=== PATIENT | male | born 1955 | race Caucasian/White ===

== ENCOUNTER 2019-06-17 14:51 | Inpatient (IN) | payer OTHER ==
[~2019-06-17] VITALS: Ht 180.3 cm; Wt 61.6 kg
[~2019-06-17 14:51] MED LIST: ALBU108A14 IN; ALL100T PO; AMLO5TAB15 PO; BACL10TA PO; FENO134C16 PO; LEVO200I5 PO
[2019-06-17 15:45] LABS: Hematocrit 36.3 % (41.0-53.0); Hemoglobin 12.3 g/dL (13.5-17.5); Mean Corpuscular Volume 88.1 fL (80.0-100.0); Platelet Count (auto) 116 10^3/uL (140-450); Red Blood Cells 4.11 10^6/uL (4.5-5.90); Red Cell Distribution Width 17.5 % (11.8-14.3); White Blood Cell 12.3 10^3/uL (4.4-10.8)
[2019-06-17 15:48] LABS: Basophils % (manual) 0 (0.0-2.0); Blast Cells 0; Eosinophils % (manual) 0 (0-7); Promyelocytes % 0; Reactive Lymphocytes 0
[2019-06-17 16:10] LABS: Band Neutrophils % (manual) 3; Lymphocytes % (manual) 7 (10.0-50.0); Metamyelocytes % 2; Monocytes % (manual) 8 (0-12); Myelocytes % 1
[2019-06-17 16:11] LABS: Albumin 2.4 g/dL (3.4-5.0); BUN/Creatinine Ratio 21.2; Calcium 8.5 mg/dL (8.5-10.1); Potassium 3.4 mmol/L (3.5-5.1)
[2019-06-17 16:13] LABS: Bilirubin, Total 0.8 mg/dL (0.2-1.0)
[2019-06-17] MEDS ORDERED: IOHEXOL 300 MG/ML 100ML BOTTLE IJ ONE (17:04)
[2019-06-17] MEDS ORDERED: OMNIPAQUE ORAL SOLN 500ml 12mg/ml PO ONE (17:04)
[2019-06-17] MEDS ORDERED: SODIUM CHLORIDE 0.9% 1,000 ML IVB ONE (17:42)
[2019-06-17] MEDS ORDERED: PANTOPRAZOLE 40 MG/10 ML VIAL INJ IV ONE (17:45)
[2019-06-17 18:02] LABS: Magnesium 1.7 mg/dL (1.6-2.6)
[2019-06-17 18:09] LABS: INR 1.19 (0.9-1.15); Partial Thromboplastin Time 30.6 sec (23.64-32.05)
[2019-06-18] MEDS ORDERED: SOD CHL 0.45% 1,000 ML IV ONE (00:15)
[2019-06-18] MEDS: PANTOPRAZOLE 40 MG/10 ML VIAL INJ IV SCH ×3 (01:24→22:00)
[2019-06-18 02:15] VITALS: BP 112/55
[2019-06-18] MEDS: MORPHINE SULF INJ 2 MG/ML SYRINGE 1ML IV PRN ×3 (02:45→14:42)
[2019-06-18] MEDS: ONDANSETRON HCL 4 MG/2 ML VIAL IV PRN ×2 (02:45→09:10)
[2019-06-18 05:00] VITALS: BP 115/83
[2019-06-18] MEDS ORDERED: BACLOFEN 10 MG TAB PO SCH (06:00)
--- NOTE | 2019-06-18 07:30 | NUR ---
Opening Shift Note Assumed care of patient, awake and alert. No S/S of distress/SOB or pain. Instructed on POC and to call for assist PRN, will continue to monitor for changes Q1hr and PRN.
--- NOTE | 2019-06-18 07:51 | NUR ---
closing notes endorsed care to day shift nursekeri. No s/s distress/sob nor pain.
[2019-06-18 08:11] LABS: Calcium 8.3 mg/dL (8.5-10.1); Potassium 3.7 mmol/L (3.5-5.1)
[2019-06-18 08:15] LABS: Albumin 2.2 g/dL (3.4-5.0); BUN/Creatinine Ratio 18.8
[2019-06-18 08:16] LABS: Hematocrit 33.8 % (41.0-53.0); Hemoglobin 11.4 g/dL (13.5-17.5); Mean Corpuscular Hemoglobin 29.9 pg (28.0-32.0); Mean Corpuscular Hgb Conc. 33.7 g/dL (32.0-36.0); Mean Corpuscular Volume 88.6 fL (80.0-100.0); Platelet Count (auto) 103 10^3/uL (140-450); Red Blood Cells 3.82 10^6/uL (4.5-5.90); Red Cell Distribution Width 17.5 % (11.8-14.3); White Blood Cell 10.8 10^3/uL (4.4-10.8)
[2019-06-18 08:17] LABS: Bilirubin, Total 0.8 mg/dL (0.2-1.0); Total Protein 5.6 g/dL (6.4-8.2)
[2019-06-18 08:27] LABS: Basophils % (manual) 0 (0.0-2.0); Blast Cells 0; Promyelocytes % 0; Reactive Lymphocytes 0
[2019-06-18 08:44] VITALS: BP 110/82
[2019-06-18] MEDS: amLODIPine BESYLATE 5 MG TAB PO SCH (10:00)
[2019-06-18 10:34] LABS: Amylase 108 U/L (25-115); Lipase 421 U/L (73-393)
[2019-06-18] MEDS: ALLOPURINOL 100 MG TAB PO SCH (10:36)
[2019-06-18 11:41] LABS: Band Neutrophils % (manual) 2; Eosinophils % (manual) 3 (0-7); Lymphocytes % (manual) 6 (10.0-50.0); Metamyelocytes % 1; Monocytes % (manual) 6 (0-12); Myelocytes % 2
[2019-06-18] MEDS ORDERED: SODI650T PO (12:28)
[2019-06-18] MEDS ORDERED: HYDR-4798 PO (12:28)
[2019-06-18] MEDS ORDERED: DEXA0.5E4 PO (12:28)
[2019-06-18] MEDS ORDERED: BICA50TA13 PO (12:28)
--- NOTE | 2019-06-18 12:32 | NUR ---
NUTRITION ASSESSMENT NOTES Please refer to link notes of nutrition screen form filed under the intervention section of the plan of care for further details. Est. Energy Needs: 2070-4413 kcal (30-35 kcal/kg BW). Est. Protein Needs: 99-132 gms/day(1.5-2.0 gms/kg BW). Will continue to monitor pertinent labs and reassess nutrient need prn Addendum: 06/18/19 at [address] Amended: Links added.
[2019-06-18] MEDS: BICALUTAMIDE 50 MG TAB PO SCH (13:00)
[2019-06-18 13:25] VITALS: BP 108/60
[2019-06-18] MEDS: SODIUM BICARBONATE 650 MG TAB PO SCH ×2 (14:42→22:00)
[2019-06-18] MEDS ORDERED: GOLYTELY 4L KIT PO ONE (14:45)
[2019-06-18 17:00] VITALS: BP 114/59
--- NOTE | 2019-06-18 17:00 | NUR ---
PT PLACED ON BILATERAL SCD'S.
--- NOTE | 2019-06-18 17:30 | NUR ---
CANDELARIA AT BEDSIDE.
--- NOTE | 2019-06-18 18:30 | NUR ---
IV insertion ATTEMPT. UNSUCCESSFUL. PT WANTED TO TAKE A BREAK. WILL ENDORSE TO [facility].
--- NOTE | 2019-06-18 19:30 | NUR ---
CLOSING NOTES PT RESTING IN BED. NO DISTRESS NOTED. PAIN AT TOLERABLE LEVEL PER PT. CARE ENDORSED TO ERIK UNDERWOOD.
--- NOTE | 2019-06-18 19:50 | NUR ---
Opening Shift Note Assumed care of patient, awake, AAOx4. No S/S of distress/SOB or pain. On 2L oxygen via nasal cannula, patient on bedrest. SCD's applied to patient. Go-Litely at bedside for colonoscopy in the morning, patient educated to consume, patient verbalized understanding. Bed in lowest locked position, side rails up x2, call light within reach. Instructed on POC and to call for assist PRN, will continue to monitor for changes Q1hr and PRN.
[2019-06-18 22:00] VITALS: BP 97/80
[2019-06-18] MEDS: DexAMETHasone 4 MG TAB PO SCH (22:00)
--- NOTE | 2019-06-18 22:30 | NUR ---
PATIENT TOOK OFF SCD MACHINE FROM BOTH LEGS. PATIENT EDUCATED ON FUNCTION AND IMPORTANCE OF THE USE OF SCD MACHINE. PATIENT VERBALIZED UNDERSTANDING AND STILL REFUSED TO USE SCD MACHINE. WILL CONTINUE TO MONITOR.
[2019-06-19 05:00] VITALS: BP 117/63
[2019-06-19 05:28] LABS: Hematocrit 34.2 % (41.0-53.0); Hemoglobin 11.5 g/dL (13.5-17.5); Mean Corpuscular Hemoglobin 29.5 pg (28.0-32.0); Mean Corpuscular Hgb Conc. 33.6 g/dL (32.0-36.0); Mean Corpuscular Volume 87.8 fL (80.0-100.0); Platelet Count (auto) 121 10^3/uL (140-450); Red Blood Cells 3.89 10^6/uL (4.5-5.90); Red Cell Distribution Width 17.7 % (11.8-14.3); White Blood Cell 11.9 10^3/uL (4.4-10.8)
[2019-06-19 05:34] LABS: Basophils % (manual) 0 (0.0-2.0); Blast Cells 0; Eosinophils % (manual) 0 (0-7); Metamyelocytes % 0; Myelocytes % 0; Promyelocytes % 0; Reactive Lymphocytes 0
[2019-06-19 05:57] LABS: BUN/Creatinine Ratio 15.4; Calcium 8.8 mg/dL (8.5-10.1)
[2019-06-19 06:07] LABS: Band Neutrophils % (manual) 5; Lymphocytes % (manual) 5 (10.0-50.0); Monocytes % (manual) 5 (0-12)
[2019-06-19] MEDS: SODIUM BICARBONATE 650 MG TAB PO SCH ×3 (06:07→22:29)
[2019-06-19] MEDS ORDERED: SODIUM CHLORIDE LOCK 0 ML ONE (08:16)
[2019-06-19] MEDS ORDERED: MIDAZOLAM HCL 5 MG/ML-1ML VIAL ONE (08:16)
[2019-06-19] MEDS ORDERED: diphenhdrAMINE HCL 50 MG/1 ML VL ONE (08:17)
[2019-06-19] MEDS ORDERED: fentaNYL CITRATE 100 MCG/2 ML VL ONE (08:17)
[2019-06-19 09:00] VITALS: BP 112/66
--- NOTE | 2019-06-19 09:10 | NUR ---
Spoke to MD MD Tesfaye aware of patient's status. New orders received for MRI. Cont care
[2019-06-19] MEDS: PANTOPRAZOLE 40 MG/10 ML VIAL INJ IV SCH ×2 (10:00→22:29)
--- NOTE | 2019-06-19 10:30 | NUR ---
Paged GI regarding colonoscopy today patient has been non compliant with drinking Golytely over night, MD Powell paged to notify and clarify if patient is having procedure or not today. Awaiting call back. Patient refusing IV insertion at this time.
[2019-06-19] MEDS: DexAMETHasone 4 MG TAB PO SCH ×2 (11:33→22:29)
[2019-06-19] MEDS: ALLOPURINOL 100 MG TAB PO SCH (11:33)
[2019-06-19] MEDS: BICALUTAMIDE 50 MG TAB PO SCH (11:34)
[2019-06-19] MEDS: amLODIPine BESYLATE 5 MG TAB PO SCH (11:36)
--- NOTE | 2019-06-19 12:03 | NUR ---
Spoke to GI Doctor Sherry aware patient did not finish Golytely and had incontinent episode watery brown stool. MD states he will not scope patient today he states pt had recent colonoscopy and no more bleeding at this time, MD states bleeding possibly due to hemorrhoids. New orders received to cancel colonoscopy and advance patient to cardiac diet. Will feed patient and cont care
--- NOTE | 2019-06-19 12:11 | NUR ---
Spoke to Hospitalist MD eTsfaye aware Doctor Sherry will not scope patient today he states pt had recent colonoscopy and no more bleeding at this time, MD states bleeding possibly due to hemorrhoids. New orders received for thoracic and cervical MRI to be added to current lumbar MRI order without contrast. Spoke to Bob and notified regarding pending MRI. Patient notified. Bere in preop aware of procedure cancelled. Will cont care
[2019-06-19 12:30] VITALS: BP 116/70
--- NOTE | 2019-06-19 14:48 | NUR ---
Rectal tube in place per doctor Misellati order. 30 ml sterile water put in tube. Patient tolerated well with no distress or sob noted. No signs of bleeding noted. Patient transported to MRI at this time.
--- NOTE | 2019-06-19 16:25 | NUR ---
Patient back from MRI IV access obtained, via clean sterile technique by inserting 22 gauge catheter at Right hand after 1 attempt(s). IV secured properly. No trauma to site. Patient tolerated well. No distress or sob noted will cont to monitor
[2019-06-19 17:00] VITALS: BP 109/71
--- NOTE | 2019-06-19 18:45 | NUR ---
Spoke to MD MD Tesfaye aware of MRI results. MD notified of stool not been clear at this time and patient continues to have liquid brown stools in rectal tube. New orders for clear liquid diet received. Will endorse care to oncoming rn
--- NOTE | 2019-06-19 19:45 | NUR ---
Opening Shift Note Assumed care of patient, sleeping in bed comfortably. No S/S of distress/SOB or pain. Instructed on POC and to call for assist PRN, will continue to monitor for changes Q1hr and PRN.
[2019-06-19 22:00] VITALS: BP 118/65
--- NOTE | 2019-06-19 23:00 | NUR ---
PATIENT OFF SCD PATIENT REMOVED SCD'S FROM BOTH LEGS. EDUCATION REGARDING USE AND BENEFITS FOR DVT PROPHYLAXIS GIVEN TO PATIENT. PATIENT STILL WISHED TO REMOVE SCD'S FOR THE NIGHT. WILL REPLACE SCD'S IN MORNING AND REEDUCATE PATIENT. WILL CONTINUE TO MONITOR.
[2019-06-20 05:31] VITALS: BP 109/63
--- NOTE | 2019-06-20 06:01 | NUR ---
PATIENT CHANGED PATIENT CLEANED AFTER PASSING URINE, REPLACED LINEN. REAPPLIED SCD'S TO BOTH LEGS AFTER REEDUCATING PATIENT.
[2019-06-20] MEDS: SODIUM BICARBONATE 650 MG TAB PO SCH ×3 (06:15→22:29)
--- NOTE | 2019-06-20 07:30 | NUR ---
Opening Shift Note Assumed care of patient, awake and alert. No S/S of distress/SOB or pain. Instructed on POC and to call for assist PRN. SCD's on as ordered. IV site noted intact. Fall precs in place per protocol. Will continue to monitor for changes Q1hr and PRN.
--- NOTE | 2019-06-20 08:52 | NUR ---
Rectal tube d/c's after complete deflation of balloon. Patient tolerated well. No signs of trauma or bleeding noted. Patient tolerated well. Hospitalist at bedside, MD Tesfaye aware of patient's status. Awaiting new orders at this time states he will talk to patient's spouse. Cont care
[2019-06-20] MEDS ORDERED: LACT10SO3 PO (08:53)
[2019-06-20 09:00] VITALS: BP 112/64
[2019-06-20] MEDS: DexAMETHasone 4 MG TAB PO SCH ×2 (09:51→22:29)
[2019-06-20] MEDS: PANTOPRAZOLE 40 MG/10 ML VIAL INJ IV SCH ×2 (09:51→22:00)
[2019-06-20] MEDS: ALLOPURINOL 100 MG TAB PO SCH (09:51)
[2019-06-20] MEDS: BICALUTAMIDE 50 MG TAB PO SCH (09:52)
[2019-06-20] MEDS: amLODIPine BESYLATE 5 MG TAB PO SCH (09:52)
[2019-06-20 13:00] VITALS: BP 124/70
--- NOTE | 2019-06-20 13:14 | NUR ---
I received a call from [facility] Regional Business Development Manager Seda asking what time she can set up transportation home for ([place] [phone])-I spoke with nurse Mague-she stated 3pm for pick-up-I relayed this information to Seda at [facility] (per Seda patient's family is undecided about hospice at this time).
--- NOTE | 2019-06-20 15:00 | NUR ---
Discharge instructions given as ordered to patient, and after patient's consent, spouse Claudia at bedside. Encourage to follow up with PMD as instructed. All questions and concerns addressed. Patient and spouse verbalized understanding. Medication reconciliation form completed and copy given to patient. Home medications held in Pharmacy returned to patient's spouse and she took them home. IV removed with catheter intact, pressure dressing applied. Patient awaiting [facility] transport to coal picker. Spouse at bedside. No distress or sob noted at this time. Patient's spouse taking belongings home.
--- NOTE | 2019-06-20 15:29 | NUR ---
assessment Patient is a 63 year old male who is alert and oriented. Prior to admission patient lived home with his and functioned with her assistance. Per patient he will return home on discharge. I informed patient he has a consult for hospice. Per patient Nidhi BALTAZAR has already spoke to him and he informed her to speak with his . Patient has a transport chair and fww for home use. I informed patient he has a right to speak to a social sciences research scientist regarding all care. I informed patient he has a right to participate in any and all discharge planning. Patient does not have a POA and advanced directive. I have offered patient information on POA and advanced directives. I informed the patient the advantages and benefits of having an Advanced Directive. Patient verbalized understanding and agreed to discharge plan. Addendum: 06/20/19 at 1534 by Little LOWRY Amended: Links added.
--- NOTE | 2019-06-20 16:00 | NUR ---
[place] at bedside [facility] personnel at bedside, he states patient cannot be transported via wheelchair at this time and he called dispatch to arrange for [facility]. dobie worker Nidhi notified and she spoke to Hospice personnel who will arrange for gurney transport. Awaiting transport at this time. Patient's at bedside.
[2019-06-20 17:00] VITALS: BP 123/92
--- NOTE | 2019-06-20 17:38 | NUR ---
D/C planning Per consult for hospice evaluation. Information and choice letter was given to patient at bedside. Per Patient he would like his to decide what agency. Spoke to patient Claudia via phone. Per Claudia she would like [facility] that Dr. Tesfaye is recommending. Faxed order to [facility]. Per Adalid with [facility] Ph:) order has been received and service to start upon d/c day. Transportation was arrange with [facility] ph:( [phone]) at 15:00 via gurney however, they brought a wheelchair so they reschedule for 22:00 via [facility]. ERIK Johnson was informed and patient was informed.
--- NOTE | 2019-06-20 17:45 | NUR ---
Regarding ETA Patient will be picked up at 2215 per social media marketing manager Nidhi. Patient notified.
--- NOTE | 2019-06-20 17:58 | NUR ---
Spoke to family per patient's request, patient's Claudia notified of oyster picker time for 2214 from [facility]. Awaiting oyster picker. Patient laying comfortable in bed no acute distress
--- NOTE | 2019-06-20 18:39 | NUR ---
Pain patient requesting pain meds at this time, IV already removed for milk pickup driver at 1500. MD Tesfaye aware and new orders received for [place] 10/325 po [id number] and dc Baclofen order. Will medicate as ordered
[2019-06-20] MEDS: HYDROcodone-ACET 10/325MG TAB PO PRN (18:47)
--- NOTE | 2019-06-20 19:06 | NUR ---
Patient care endorsed endorsed care to Prema riley. Patient laying on right side. No acute distress or sob noted. Call light within reach. Awaiting [facility] transport at this time.
--- NOTE | 2019-06-20 19:23 | NUR ---
Opening Shift Note Assumed care of patient, awake and alert. Resting in bed comfortably. No S/S of distress/SOB or pain. Instructed on POC and to call for assist PRN, will continue to monitor for changes Q1hr and PRN.
[2019-06-20 21:47] VITALS: BP 114/71
--- NOTE | 2019-06-20 22:50 | NUR ---
POSTPONED TRANSPORT/DC SPOKE WITH KELLY WITH [facility], . KELLY INFORMED THAT TRANSPORT HAS BEEN POSTPONED UNTIL MORNING, 06/21/19 AT AROUND [phone], STATING 'SHE SPOKE WITH DOCTOR FROM [facility] AND THEY PLAN TO WAIT FOR THE PATIENT '. KELLY ALSO STATED SHE MESSAGED THE MANAGER BAKERY REGARDING DELAY IN TRANSPORT. WILL CONTINUE TO CARE FOR PATIENT.
--- NOTE | 2019-06-21 00:37 | NUR ---
ISABELLA CARE AND LINEN CHANGE ISABELLA CARE PERFORMED AFTER PATIENT HAD BM. COMPLETE LINEN CHANGE. PATIENT TOLERATED WELL. NO S/S OF DISTRESS.
--- NOTE | 2019-06-21 03:50 | NUR ---
IV REFUSED PATIENT REFUSED IV INSERTION. PATIENT EDUCATED ON RATIONALE OF IV. WILL CONTINUE TO MONITOR.
[2019-06-21 05:43] VITALS: BP 112/70
[2019-06-21] MEDS: SODIUM BICARBONATE 650 MG TAB PO SCH (05:48)
[2019-06-21] MEDS: HYDROcodone-ACET 10/325MG TAB PO PRN (05:49)
--- NOTE | 2019-06-21 07:30 | NUR ---
Opening Shift Note Assumed care of patient, awake and alert. No S/S of distress/SOB or pain. Bed is low, locked with 2x side rails up. Call light is within reach. Instructed on POC and to call for assist PRN, will continue to monitor for changes Q1hr and PRN.
--- NOTE | 2019-06-21 08:56 | NUR ---
Discharge/Transportation Spoke with Claudia () and let her know that transport will be here around 0930 to cotton picker patient and transport him home. Per , she will be home to receive patient when he arrives.
[2019-06-21 09:00] VITALS: BP 117/75
[2019-06-21] MEDS: DexAMETHasone 4 MG TAB PO SCH (10:00)
[2019-06-21] MEDS: PANTOPRAZOLE 40 MG/10 ML VIAL INJ IV SCH (10:00)
[2019-06-21] MEDS: BICALUTAMIDE 50 MG TAB PO SCH (10:00)
[2019-06-21] MEDS: amLODIPine BESYLATE 5 MG TAB PO SCH (10:00)
[2019-06-21] MEDS: ALLOPURINOL 100 MG TAB PO SCH (10:00)
--- NOTE | 2019-06-21 10:12 | NUR ---
[facility] here to oyster picker patient and transport him home. Addendum: 06/21/19 at 1040 by Brianda Field RN RN No distress noted upon departure. Family aware of patient being picked up.
== END 2019-06-21 10:12 | disposition hospice, home (50) | DRG 394 ==
LOC: EDBD 14:51 → EDUNIT# 14:51 → ER 14:53 → OVERFLOW 14:54 → CENTRAL 06-18 01:55
PROVIDERS: ADMIT Internal Medicine; ATTEND Internal Medicine
DX: K64.9 Unspecified hemorrhoids (principal); C79.49 Secondary malignant neoplasm of other parts of nervous system; C79.51 Secondary malignant neoplasm of bone; M84.48XA Pathological fracture, other site, initial encounter for fracture; E44.0 Moderate protein-calorie malnutrition; C61 Malignant neoplasm of prostate; E03.9 Hypothyroidism, unspecified; I10 Essential (primary) hypertension; D69.6 Thrombocytopenia, unspecified; K59.00 Constipation, unspecified; D50.0 Iron deficiency anemia secondary to blood loss (chronic); E78.5 Hyperlipidemia, unspecified; M48.02 Spinal stenosis, cervical region; Z51.5 Encounter for palliative care; M10.9 Gout, unspecified; Z90.79 Acquired absence of other genital organ(s); Z79.899 Other long term (current) drug therapy
CPT/HCPCS: 36415; 71045; 72141; 72146; 72148; 74177; 80048; 80053; 82150; 82962; 83690; 83735; 85007; 85027; 85610; 85730; 87081; 93005; 96361; 96374; C9113; G0378; J2250; J2405